=== PATIENT | female | born 1945 | race Caucasian/White ===

== ENCOUNTER 2017-10-22 10:46 | Outpatient (CLI) | payer MEDICARE, BC | END 2017-10-22 10:47 | disposition home or self-care (01) | LOC: BICMAMMO 10:46 | PROVIDERS: ATTEND Obstetrics & Gynecology | DX: Z12.31 Encounter for screening mammogram for malignant neoplasm of breast (principal); Z80.3 Family history of malignant neoplasm of breast | CPT/HCPCS: 77063; 77067 ==

== ENCOUNTER 2018-01-10 03:35 | Emergency (ER) | payer MEDICARE, BC ==
[2018-01-10] MEDS ORDERED: predniSONE 20 MG TAB ONE (04:16)
[2018-01-10] MEDS ORDERED: Famotidine 20 MG TAB ONE (04:16)
== END 2018-01-10 04:20 | disposition home or self-care (01) ==
LOC: SCSER 03:35
DX: T78.40XA Allergy, unspecified, initial encounter (principal); J06.9 Acute upper respiratory infection, unspecified; I48.91 Unspecified atrial fibrillation
CPT/HCPCS: 93005; J7506

== ENCOUNTER 2018-10-24 10:37 | Outpatient (CLI) | payer MEDICARE, BC ==
--- NOTE | 2018-10-24 11:28 | MMO ---
Bilateral MAMMO Bilat Screen [facility]. CLINICAL HISTORY: Patient is 73 years old and is seen for screening. The patient has the following family history of breast cancer: maternal aunt, at age 70. The patient has a history of melanoma. The patient has a history of right Excisional Biopsy in 1998 - benign. VIEWS: The views performed were: bilateral craniocaudal with tomosynthesis and bilateral mediolateral oblique with tomosynthesis. FILMS COMPARED: The present examination has been compared to prior imaging studies performed at [facility] on 09/16/2007, 09/17/2008, 09/20/2009, 09/23/2010, 09/30/2012, 10/01/2013, 10/08/2014, 10/11/2015, 10/11/2016 and 10/22/2017. MAMMOGRAM FINDINGS: There are scattered fibroglandular densities. There are stable benign appearing calcifications seen in both breasts. There are no suspicious masses, suspicious calcifications, or new areas of architectural distortion. IMPRESSION: THERE IS NO MAMMOGRAPHIC EVIDENCE OF MALIGNANCY. A ROUTINE FOLLOW-UP MAMMOGRAM IN 1 YEAR IS RECOMMENDED. THE RESULTS OF THIS EXAM WERE SENT TO THE PATIENT. ACR BI-RADS Category 2 - Benign finding MAMMOGRAPHY NOTE: 1. A negative mammogram report should not delay a biopsy if a dominant of clinically suspicious mass is present. 2. Approximately 10% to 15% of breast cancers are not detected by mammography. 3. Adenosis and dense breasts may obscure an underlying neoplasm.
--- NOTE | 2018-10-24 14:24 | BD ---
DEXA BONE SCAN: HISTORY: Previous age-related osteoporosis. This 73-year-old presents with a history of age-related osteoporo sis. COMPARISON: Previous comparison exam from 10/11/2016. FINDINGS: Bone marrow density is using hologic bone mineral density unit. Lumbar Spine: BMD (g/cm2) L1 0.77 T-Score: -2.0 Z-Score: -0.1 L2 0.84 T-Score: -1.4 Z-Score: +0.4 L3 0.81 T-Score: -2.5 Z-Score: -0.2 L4 0.75 T-Score: -2.8 Z-Score: -0.5 L1-L4 0.79 T-Score: -2.3 Z-Score: -0.1 Findings compatible with osteopenia. Left Hip: Femoral Neck: 0.56 T-Score: -2.1 Z-Score: -0.8 Total Femur: 0.70 T-Score: -2.0 Z-Score: -0.4 Composite equals osteoporosis. Impression: Decreased bone mineral density. Findings compatible with osteopenia. The patient had mild increased risk of osteoporotic fractures. POS: ISAAC
== END 2018-10-24 10:38 | disposition home or self-care (01) ==
LOC: BICMAMMO 10:37
PROVIDERS: ATTEND Obstetrics & Gynecology
DX: Z12.31 Encounter for screening mammogram for malignant neoplasm of breast (principal); Z13.820 Encounter for screening for osteoporosis; Z80.3 Family history of malignant neoplasm of breast; Z85.820 Personal history of malignant melanoma of skin
CPT/HCPCS: 77063; 77067; 77080

== ENCOUNTER 2020-02-04 11:55 | Outpatient (CLI) | payer MEDICARE, BC ==
--- NOTE | 2020-02-04 14:14 | MMO ---
Bilateral MAMMO Bilat Screen [facility]. CLINICAL HISTORY: Patient is 74 years old and is seen for screening. The patient has the following family history of breast cancer: maternal aunt, at age 70 and mother, malignant (generic). The patient has a history of melanoma. The patient has a history of right Excisional Biopsy in 1998 - benign. VIEWS: The views performed were: bilateral craniocaudal with tomosynthesis and bilateral mediolateral oblique with tomosynthesis. FILMS COMPARED: The present examination has been compared to prior imaging studies performed at [facility] on 10/11/2015, 10/11/2016, 10/22/2017 and 10/24/2018. This study has been interpreted with the assistance of computer-aided detection. MAMMOGRAM FINDINGS: There are scattered fibroglandular densities. Benign calcifications are noted bilaterally. There are no suspicious masses, suspicious calcifications, or new areas of architectural distortion. IMPRESSION: THERE IS NO MAMMOGRAPHIC EVIDENCE OF MALIGNANCY. A ROUTINE FOLLOW-UP MAMMOGRAM IN 1 YEAR IS RECOMMENDED. THE RESULTS OF THIS EXAM WERE SENT TO THE PATIENT. ACR BI-RADS Category 2 - Benign finding MAMMOGRAPHY NOTE: 1. A negative mammogram report should not delay a biopsy if a dominant of clinically suspicious mass is present. 2. Approximately 10% to 15% of breast cancers are not detected by mammography. 3. Adenosis and dense breasts may obscure an underlying neoplasm. Reported by: HERRERA AMOR MD Electonically Signed: [id number]
== END 2020-02-04 11:56 | disposition home or self-care (01) ==
LOC: BICMAMMO 11:55
PROVIDERS: ATTEND Obstetrics & Gynecology
DX: Z12.31 Encounter for screening mammogram for malignant neoplasm of breast (principal); Z80.3 Family history of malignant neoplasm of breast; Z85.820 Personal history of malignant melanoma of skin; Z91.89 Other specified personal risk factors, not elsewhere classified
CPT/HCPCS: 77063; 77067

== ENCOUNTER 2022-02-21 13:09 | Outpatient (CLI) | payer MEDICARE, BC | END 2022-02-21 13:10 | disposition home or self-care (01) | LOC: BICMAMMO 13:09 | PROVIDERS: ATTEND Obstetrics & Gynecology | DX: Z12.31 Encounter for screening mammogram for malignant neoplasm of breast (principal); Z91.89 Other specified personal risk factors, not elsewhere classified; Z85.820 Personal history of malignant melanoma of skin; Z80.3 Family history of malignant neoplasm of breast | CPT/HCPCS: 77063; 77067 ==

== ENCOUNTER 2024-03-06 15:11 | Outpatient (CLI) | payer MEDICARE | END 2024-03-06 15:12 | disposition home or self-care (01) | LOC: BICMAMMO 15:11 | PROVIDERS: ATTEND Internal Medicine | DX: M85.851 Other specified disorders of bone density and structure, right thigh (principal); M81.0 Age-related osteoporosis without current pathological fracture | CPT/HCPCS: 77080 ==

== ENCOUNTER 2024-04-10 09:31 | Outpatient (CLI) | payer MEDICARE | END 2024-04-10 09:32 | disposition home or self-care (01) | LOC: BICMAMMO 09:31 | PROVIDERS: ATTEND Internal Medicine | DX: Z12.31 Encounter for screening mammogram for malignant neoplasm of breast (principal); Z80.3 Family history of malignant neoplasm of breast; Z91.89 Other specified personal risk factors, not elsewhere classified; Z85.820 Personal history of malignant melanoma of skin | CPT/HCPCS: 77067 ==